=== PATIENT | male | born 1985 | race Two or more races ===

== ENCOUNTER 2020-12-23 14:51 | Emergency (ER) | payer SELFPAY ==
[~2020-12-23] VITALS: Ht 167.6 cm; Wt 77.1 kg
[2020-12-23 19:24] VITALS: BP 121/80
[2020-12-23] MEDS ORDERED: cefTRIAXone SOD 1,000 MG VL IM ONE (20:45)
[2020-12-23] MEDS ORDERED: IBUPROFEN 600 MG TAB PO ONE (20:45)
[2020-12-23] MEDS ORDERED: LIDOCAINE 1% HCL (LOCAL ANESTH.) INJ 20ML MDV ID ONE (20:45)
== END 2020-12-23 21:21 | disposition home or self-care (01) ==
LOC: EDBD → ER 14:51
DX: S81.801A Unspecified open wound, right lower leg, initial encounter (principal); L03.115 Cellulitis of right lower limb; F17.210 Nicotine dependence, cigarettes, uncomplicated; W57.XXXA Bitten or stung by nonvenomous insect and other nonvenomous arthropods, initial encounter; Y93.89 Activity, other specified; Y92.89 Other specified places as the place of occurrence of the external cause; Y99.8 Other external cause status
CPT/HCPCS: 96372; 99283; J0696; J2001

== ENCOUNTER 2021-03-05 20:51 | Emergency (ER) | payer MEDICAID, OTHER ==
[~2021-03-05] VITALS: Ht 162.6 cm; Wt 59.0 kg
== END 2021-03-05 21:29 | disposition left against medical advice (07) ==
LOC: ER 20:54
DX: Z53.21 Procedure and treatment not carried out due to patient leaving prior to being seen by health care provider

== ENCOUNTER 2021-03-07 19:33 | Emergency (ER) | payer MEDICAID ==
[~2021-03-07] VITALS: Ht 165.1 cm; Wt 63.5 kg
[2021-03-07 19:59] VITALS: BP 111/68
== END 2021-03-08 05:17 | disposition home or self-care (01) ==
LOC: ER 19:37
DX: B34.9 Viral infection, unspecified (principal); R19.7 Diarrhea, unspecified; J02.9 Acute pharyngitis, unspecified; Z20.822 Contact with and (suspected) exposure to COVID-19
CPT/HCPCS: 36415; 71045; 87426

== ENCOUNTER 2021-03-19 22:01 | Emergency (ER) | payer MEDICAID ==
[~2021-03-19] VITALS: Ht 165.1 cm; Wt 63.5 kg
[2021-03-19 22:01] VITALS: BP 110/71
[2021-03-19] MEDS ORDERED: FAMOTIDINE (10MG/ML) 2ML VL IV ONE (23:30)
[2021-03-19] MEDS ORDERED: ONDANSETRON HCL 4 MG/2 ML VIAL IV ONE (23:30)
[2021-03-19] MEDS ORDERED: SODIUM CHLORIDE 0.9% 1,000 ML IVB ONE (23:30)
[2021-03-19 23:45] LABS: Basophils # (auto) 0.1 10 ^3/uL (0-0.2); Hemoglobin 11.5 g/dL (13.5-17.5); Mean Corpuscular Volume 83.4 fL (80.0-100.0); Monocytes # (auto) 0.8 10 ^3/uL (0-1.3); Neutrophils # (auto) 11.1 10 ^3/uL (1.6-8.6); Nucleated Red Blood Cells % 0.1 %
[2021-03-19 23:46] LABS: Basophils % (auto) 0.7 % (0.0-2.0); Eosinophils # (auto) 0.3 10 ^3/uL (0-0.8); Eosinophils % (auto) 2.2 % (0.0-7.0); Lymphocytes # (auto) 2.2 10 ^3/uL (0.4-5.4); Lymphocytes % (auto) 15.3 % (10.0-50.0); Mean Corpuscular Hemoglobin 27.4 pg (28.0-32.0); Mean Corpuscular Hgb Conc. 32.8 g/dL (32.0-36.0); Monocytes % (auto) 5.4 % (0.0-12.0); Neutrophils % (auto) 76.4 % (37.0-80.0); Red Blood Cells 4.19 10^6/uL (4.5-5.90); White Blood Cell 14.5 10^3/uL (4.4-10.8)
[2021-03-20 00:02] LABS: Albumin 2.2 g/dL (3.4-5.0); Anion Gap 6 (5-15); BUN/Creatinine Ratio 10.3; Blood Urea Nitrogen 8 mg/dL (7-18); Calcium 7.8 mg/dL (8.5-10.1); Carbon Dioxide 26 mmol/L (21-32); Chloride 107 mmol/L (98-107); GFR African American 147 mL/min; GFR Non-African American 121 mL/min; Glucose 127 mg/dL (74-106); Lipase 48 U/L (73-393); Magnesium 2.6 mg/dL (1.6-2.6); Sodium 139 mmol/L (136-145)
[2021-03-20 00:06] LABS: Alanine Aminotransferase 17 U/L (16-61); Alkaline Phosphatase 108 U/L (45-117); Aspartate Aminotransferase 20 U/L (15-37); Bilirubin, Total < 0.1 mg/dL (0.2-1.0); Total Protein 6.3 g/dL (6.4-8.2)
== END 2021-03-20 01:32 | disposition left against medical advice (07) ==
LOC: ER 22:03
DX: R10.13 Epigastric pain (principal); R11.2 Nausea with vomiting, unspecified; R19.7 Diarrhea, unspecified; F17.210 Nicotine dependence, cigarettes, uncomplicated; Z59.0 Homelessness
CPT/HCPCS: 36415; 80053; 83605; 83690; 83735; 85025

== ENCOUNTER 2021-08-23 00:48 | Emergency (ER) | payer MEDICAID, OTHER ==
[~2021-08-23] VITALS: Ht 165.1 cm; Wt 67.1 kg
[2021-08-23 00:48] VITALS: BP 115/75
[2021-08-23] MEDS ORDERED: PANTOPRAZOLE 40 MG TAB PO ONE (01:00)
[2021-08-23] MEDS ORDERED: ONDANSETRON ODT 4 MG TAB PO ONE (01:00)
[2021-08-23] MEDS ORDERED: ONDA-144 PO (01:14)
[2021-08-23] MEDS ORDERED: PANT40TA2 PO (01:14)
== END 2021-08-23 02:34 | disposition home or self-care (01) ==
LOC: ER 00:48
DX: K29.00 Acute gastritis without bleeding (principal); F17.210 Nicotine dependence, cigarettes, uncomplicated; F12.10 Cannabis abuse, uncomplicated; F15.10 Other stimulant abuse, uncomplicated; E78.5 Hyperlipidemia, unspecified; Z90.89 Acquired absence of other organs; Z59.00 Homelessness unspecified
CPT/HCPCS: 74176; 99284; Q0162